=== PATIENT | female | born 1950 | race Caucasian/White ===

== ENCOUNTER 2019-11-14 17:46 | Emergency (ER) | payer BC ==
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
--- NOTE | 2019-11-18 10:37 | CR ---
Toes Fifth Digit Rt T9 CLINICAL HISTORY: Injury, deformity FINDINGS: Patient has a moderate angulated fracture at the fifth proximal phalanx. There appears to be previous fusion of the PIP joint IMPRESSION: Angulated fracture fifth proximal phalanx
== END 2019-11-14 19:03 | disposition home or self-care (01) ==
LOC: JP.ED 17:46
DX: S92.511A Displaced fracture of proximal phalanx of right lesser toe(s), initial encounter for closed fracture (principal); I10 Essential (primary) hypertension; E78.00 Pure hypercholesterolemia, unspecified; Z79.899 Other long term (current) drug therapy; W23.0XXA Caught, crushed, jammed, or pinched between moving objects, initial encounter
CPT/HCPCS: 28515; 28660; 73660; 99283; J2001